=== PATIENT | male | born 1980 | race American Indian/Alaskan Native ===

== ENCOUNTER 2020-10-18 02:35 | Inpatient (IN) | payer MEDICAID ==
[2020-10-18] MEDS ORDERED: Albuterol/Ipratropium 3.0-0.5 MG/3 ML Neb Soln NEB PRN (03:32)
[2020-10-18] MEDS ORDERED: Sodium Chloride 0.9% 10 ML Syringe FLUSH PRN (03:32)
[2020-10-18] MEDS ORDERED: Lidocaine 2% 30 ML, Alum Hydrox/Mag Hydrox/Simeth 30 ML, diphenhydrAMINE 75 MG PO PRN ×3 (04:08)
[2020-10-18] MEDS ORDERED: HYDROmorphone 2 MG Tab PO PRN (04:08)
[2020-10-18] MEDS ORDERED: Levofloxacin 250 MG Tab PO SCH (04:30)
[2020-10-18] MEDS: Ketorolac 30 MG/ML SDV IVPUSH PRN ×3 (04:48→21:05)
[2020-10-18] MEDS ORDERED: cefTRIAXone 1 GM in Sodium Chloride 0.9% 50 ML IV SCH ×2 (05:00→21:00)
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
[2020-10-18] MEDS ORDERED: DIPHENHYDRAMINE PO PRN ×6 (06:01→08:00)
[2020-10-18] MEDS ORDERED: SIMETH PO PRN ×6 (06:01→08:00)
[2020-10-18] MEDS ORDERED: ALUM HYDROX PO PRN ×6 (06:01→08:00)
[2020-10-18] MEDS ORDERED: MAG HYDROX PO PRN ×6 (06:01→08:00)
[2020-10-18] MEDS ORDERED: LIDOCAINE 2% PO PRN ×6 (06:01→08:00)
[2020-10-18] MEDS ORDERED: Non-Formulary Medication 1 Each PO SCH (09:00)
[2020-10-18] MEDS: Sulfamethoxazole/Trimethoprim 800-160 MG Tab PO SCH (09:12)
--- NOTE | 2020-10-18 09:29 | CR ---
CHEST: 2 view CLINICAL HISTORY:Pneumonia COMPARISON:None FINDINGS: There is patchy bilateral lower lobe pneumonic infiltrate. There is also right pleural effusion. Heart size and pulmonary vascularity is normal. IMPRESSION:. Bilateral lower lobe pneumonic infiltrates Moderate right pleural effusion Follow-up recommended until clear
--- NOTE | 2020-10-18 09:33 | CR ---
CHEST: Portable 10/18/2020 at 8:40 AM CLINICAL HISTORY:Postthoracentesis COMPARISON:Earlier same day FINDINGS: Patient has persistent bilateral pulmonary infiltrates. The right pleural effusion has diminished. There is no significant pneumothorax. IMPRESSION: STATUS post right thoracentesis No significant pneumothorax identified
[2020-10-18] MEDS ORDERED: FLU VACC QS2020-21(6MOS UP)/PF 60 MCG/0.5 ML SYRINGE IM ONE (10:00)
[2020-10-18] MEDS: BIKTARVY PO SCH (10:26)
[2020-10-18] MEDS ORDERED: Sodium Chloride 0.9% 10 ML Syringe FLUSH ONE (10:33)
[2020-10-18] MEDS ORDERED: Iopamidol 612 MG/ML 500 ML Multipack Bottle IV ONE (10:33)
[2020-10-18] MEDS ORDERED: Sodium Chloride 0.9% 80 ML IV SCH (10:45)
--- NOTE | 2020-10-18 10:54 | CONS ---
DATE OF SERVICE: 10/18/2020 REFERRING PHYSICIAN: CONSULTING PHYSICIAN: Briseyda Grewal PA-C REASON FOR CONSULTATION: Adriel is a consultation to Surgery from Eric Mario MD regarding right pleural effusion. HISTORY OF PRESENT ILLNESS: Adriel Barr was transferred from [facility] [place] for inpatient admission of recurrent pneumonia. Recently hospitalized 11 days at [facility] in [facility] approximately 2 weeks ago for pneumonia. He was on IV antibiotics. After discharge, he developed increasingly pleuritic pain, shortness of breath. The pain was worse when lying down, felt like he had a fever one time, but did not check it. States he has had several COVID screens and they have all been negative and has not been exposed. FAMILY HISTORY: Positive for diabetes, heart disease, kidney disease, and no recent COVID infection. REVIEW OF SYSTEMS: HEENT: Negative. NECK: Negative. HEART: Negative. ENDOCRINE: History of type 2 diabetes. CARDIAC: Denies any chest pain. LUNGS: Reports shortness of breath, history of pneumonia, asthma, emphysema, and TB. GI: Denies any abdominal pain. Appetite is good. No dysphagia, nausea, vomiting, diarrhea, or constipation. : Negative. MUSCULOSKELETAL: Chronic arthritis in joints. NEUROLOGIC: Denies any history of headache, dizziness, seizures, or peripheral neuropathy. PSYCHIATRIC: No history of depression, insomnia, or anxiety. PAST MEDICAL HISTORY: 1. Human immunodeficiency virus, chronic antiviral therapy. 2. Kaposi sarcoma. 3. Type 2 diabetes. 4. Hypertension. 5. Hyperlipidemia. 6. Ischemic heart disease. 7. Chronic arthritis. CURRENT MEDICATIONS: Sulfa DS daily, Dilaudid 1 mg every 4 hours p.r.n. pain, Mintox suspension 10 mL every 6 hours p.r.n., Tylenol Extra Strength 1000 mg every 6 hours, and Biktarvy 25 mg orally. ALLERGIES: HAS NO MEDICAL ALLERGIES. SOCIAL HISTORY: Single. EMPLOYMENT: Unemployed. PHYSICAL EXAMINATION: GENERAL: Adriel Barr is a pleasant 40-year-old male, height is 5 feet 7 inches, weight is 169 pounds. VITAL SIGNS: TPR last checked at 0250: 98.8, 110, 18. Blood pressure 103/60. HEENT: Negative. NECK: Supple. HEART: Regular rate and rhythm. LUNGS: Revealed decreased breath sounds bilaterally. ABDOMEN: Soft, nontender. EXTREMITIES: Without peripheral edema. NEUROLOGIC: Intact. PSYCHIATRIC: Mood and affect appropriate. SKIN: Without rash. ASSESSMENT: 1. Recurrent pneumonia with right-sided pleural effusion. 2. Human immunodeficiency virus positive status with chronic antiviral therapy. 3. History of Kaposi sarcoma. 4. Diabetes type 2. PLAN: 1. Have consent signed for thoracentesis on the right. 2. Schedule stat ultrasound. The patient is sitting and to thong right side of lung. 3. We will evaluate p.r.n. or in a.m. Thank you for this consultation. Briseyda Grewal PA-C /[id number]
[2020-10-18] MEDS: Acetaminophen 325 MG Tab PO PRN (14:15)
--- NOTE | 2020-10-18 15:30 | CT ---
Chest w Cont CLINICAL HISTORY: Recurrent pneumonia with effusion COMPARISON: Portable chest earlier same day TECHNIQUE: Thin section axial contiguous tomographic sections were taken through the chest after bolus IV iodinated contrast administration. Coronal and sagittal images were reconstructed. Auto dosage reduction and iterative reconstruction techniques employed. FINDINGS: There are a few scattered bullae in the right apex. There is some minimal patchy density in the posterior medial right upper lobe. Moderate patchy infiltrates and areas of consolidation in the right middle lobe and both lower lobes. There is some moderate right pleural effusion. There is a small left effusion. There is moderate bilateral axillary lymphadenopathy. There are some paratracheal lymph nodes bilaterally. There are also pericarinal and bilateral hilar lymph nodes. Scans into the upper abdomen show diffuse periportal edema. IMPRESSION: Moderate patchy bilateral pulmonary infiltrates in the lower lobes and right middle lobe with large areas of consolidation Bilateral pleural effusions right greater than left Moderate bilateral axillary lymphadenopathy with some peritracheal and pericarinal lymphadenopathy. There is soft tissue fullness in both rubin some which appears to be due to small lymph nodes. Moderate diffuse periportal edema throughout the liver of unknown etiology. This can be seen with congestive heart failure or fluid overload. There are no other signs of hepatitis or ilana hepatis mass.
[2020-10-18] MEDS: Meropenem 1 GM in Sodium Chloride 0.9% 100 ML IV SCH (16:01)
--- NOTE | 2020-10-18 17:39 | OR ---
DATE OF PROCEDURE: 10/18/2020 SURGEON: Agustín Tovar MD PREOPERATIVE DIAGNOSIS: Recurrent right pleural effusion. POSTOPERATIVE DIAGNOSIS: Recurrent right pleural effusion. OPERATIVE PROCEDURE: Ultrasound-guided right thoracentesis. ANESTHESIA: Local. INDICATION FOR PROCEDURE: This is a 40-year-old admitted from [facility] last night. He has had been treated over the last several weeks for a pneumonia in [facility] and was recently discharged from [facility]. He presents now with recurrent symptoms and among other things a recurrent right pleural effusion. He has had two thoracentesis done in [facility] recently. Plan is to proceed with a right thoracentesis. Potential risks including bleeding, infection, pneumothorax and such were reviewed, possibly needing a chest tube either because of problems such as being a pneumothorax or if an empyema is identified were all reviewed, and the patient wishes to proceed. DETAILS OF PROCEDURE: The patient was placed in a sitting position in his hospital bed. The right posterolateral chest wall was then interrogated with ultrasound and the location for the thoracentesis marked, that area was then prepped and draped. Thoracentesis catheter placed after some local anesthetic was injected and 1500 mL of thinly blood-tinged pleural fluid was evacuated. As much fluid as possible was removed and the catheter then withdrawn. A chest x-ray is pending. The fluid in this case would be sent for a full microbiologic workup as well as some cytology, and we will obtain the chest x-ray now and then follow up in the morning. Agustín Tovar MD /[id number]
[2020-10-18] MEDS: Lactobacillus Rhamnosus GG (Probiotic) Cap PO SCH (21:09)
[2020-10-18] MEDS: oxyCODONE 5 MG Tab PO PRN (21:18)
[2020-10-19] MEDS: Meropenem 1 GM in Sodium Chloride 0.9% 100 ML IV SCH ×4 (00:06→23:41)
[2020-10-19] MEDS: Levofloxacin 250 MG Tab PO SCH (07:48)
[2020-10-19] MEDS: Lactobacillus Rhamnosus GG (Probiotic) Cap PO SCH ×2 (08:07→22:37)
[2020-10-19] MEDS: Sulfamethoxazole/Trimethoprim 800-160 MG Tab PO SCH (08:07)
[2020-10-19] MEDS: BIKTARVY PO SCH (08:10)
--- NOTE | 2020-10-19 08:33 | PN ---
DATE OF SERVICE: 10/19/2020 SUBJECTIVE: Adriel had a thoracentesis yesterday with 1500 mL returned. He was put on oxygen 2 L during the night. His pulse oximetry was 89% on room air. He has no questions or concerns today. OBJECTIVE: GENERAL: Adriel Barr is a 40-year-old male. VITAL SIGNS: TPR is 96.8; 93; 16; blood pressure 108/63. HEENT: Negative. NECK: Supple. HEART: Regular rate and rhythm. LUNGS: Have improved. Remains to have decreased breath sounds in the bases bilaterally. EXTREMITIES: Negative. ASSESSMENT: Ultrasound-guided right thoracentesis for recurrent right pleural effusion. PLAN: 1. Remove dressing from thoracentesis. 2. We will evaluate p.r.marianne Grewal PA-C /[id number]
--- NOTE | 2020-10-19 09:20 | CR ---
CHEST: 2 view CLINICAL HISTORY:Postthoracentesis COMPARISON:10/18/2020 FINDINGS: Patient has bilateral lower lobe infiltrates. There is some reaccumulation of pleural fluid in the right hemithorax. There is a minimal left effusion. IMPRESSION: Reaccumulation of right pleural fluid with some development of a small left effusion Persistent moderate bibasal pulmonary infiltrates
[2020-10-19] MEDS: Acetaminophen 325 MG Tab PO PRN (09:56)
--- NOTE | 2020-10-19 13:07 | PCM.PN ---
- General Info Date of Service: 10/19/20 Subjective Update: No acute events overnight. He is on 2 L of oxygen at this point with a very slight desaturation last night. His chest and back pain are slightly better today but not resolved. Appetite has been good. No nausea. No fevers. Cultures were all negative so far. His pleural effusion seems to be reaccumulating based on follow-up chest x-ray today. Functional Status: Reports: Pain Controlled, Tolerating Diet - Review of Systems General: Denies: Fever Pulmonary: Reports: Pleuritic Chest Pain - Patient Data Vitals - Most Recent: Last Vital Signs Temp 37.2 C 10/19/20 11:19 Pulse 100 10/19/20 11:19 Resp 16 10/19/20 11:19 BP 103/52 L 10/19/20 11:19 Pulse Ox 95 10/19/20 11:19 Weight - Most Recent: 76.929 kg I&O - Last 24 Hours: Intake & Output 10/18/20 10/19/20 10/19/20 22:59 06:59 14:59 Intake Total 5589 817 4725 Balance 7058 496 5435 Lab Results Last 24 Hours: Laboratory Results - last 24 hr 10/18/20 10/19/20 10/19/20 Range/Units 08:20 04:00 04:00 WBC 6.6 (4.5-11.0) K/uL RBC 3.34 L (4.30-5.90) M/uL Hgb 8.9 L (12.0-15.0) g/dL Hct 28.9 L (40.0-54.0) % MCV 87 (80-98) fL MCH 27 (27-31) pg MCHC 31 L (32-36) % Plt Count 346 (150-400) K/uL Sodium 136 L (140-148) mmol/L Potassium 4.0 (3.6-5.2) mmol/L Chloride 105 (100-108) mmol/L Carbon Dioxide 25 (21-32) mmol/L Anion Gap 10.0 (5.0-14.0) mmol/L BUN 13 (7-18) mg/dL Creatinine 0.8 (0.8-1.3) mg/dL Est Cr Clr Drug Dosing 114.47 mL/min Estimated GFR (MDRD) > 60 (>60) Glucose 156 H (74-106) mg/dL Calcium 7.7 L (8.5-10.1) mg/dL Fluid Diff Comment Not Reportable Tommy Results Last 24 Hours: Microbiology 10/18/20 08:14 Gram Stain - Final Thoracentesis Fluid Body Fluid Culture - Preliminary NO GROWTH AFTER 1 DAY 10/18/20 03:45 Aerobic Blood Culture - Preliminary Blood - Venous - Lab Draw NO GROWTH AFTER 1 DAY Anaerobic Blood Culture - Preliminary NO GROWTH AFTER 1 DAY 10/18/20 03:45 Aerobic Blood Culture - Preliminary Blood - Venous NO GROWTH AFTER 1 DAY Anaerobic Blood Culture - Preliminary NO GROWTH AFTER 1 DAY 10/18/20 08:14 CAM Preparation - Final Other - Chest Med Orders - Current: Current Medications Acetaminophen (Tylenol) 650 mg PO Q4H PRN PRN Reason: Pain Last Admin: 10/19/20 09:56 Dose: 650 mg Documented by: Albuterol/Ipratropium (Duoneb 3.0-0.5 Mg/3 Ml) 3 ml NEB Q4H PRN PRN Reason: Shortness of Breath Al Hydroxide/Mg Hydroxide 30 ml/ Diphenhydramine HCl 75 mg/Lidocaine HCl 30 ml 0 ml PO QID PRN PRN Reason: MOUTH CARE Hydromorphone HCl (Dilaudid) 1 mg PO Q4H PRN PRN Reason: Pain Meropenem 1 gm/ Sodium (Chloride) 100 mls @ 200 mls/hr IV Q8H [facility] Last Admin: 10/19/20 07:50 Dose: 200 mls/hr Documented by: Ketorolac Tromethamine (Toradol) 30 mg IVPUSH Q6H PRN PRN Reason: Pain (moderate 4-6) Stop: 10/23/20 03:34 Last Admin: 10/18/20 21:05 Dose: 30 mg Documented by: Lactobacillus Rhamnosus (Culturelle) 1 cap PO BID [facility] Last Admin: 10/19/20 08:07 Dose: 1 cap Documented by: Levofloxacin (Levaquin) 750 mg PO Q24H [facility] Last Admin: 10/19/20 07:48 Dose: 750 mg Documented by: Biktarvy 50/200/25mg (Tab (Ptom)) 1 each PO DAILY [facility] Last Admin: 10/19/20 08:10 Dose: 1 each Documented by: Oxycodone HCl (Oxycodone) 5 mg PO Q4H PRN PRN Reason: Pain (moderate 4-6) Last Admin: 10/18/20 21:18 Dose: 5 mg Documented by: Sodium Chloride (Saline Flush) 10 ml FLUSH ASDIRECTED PRN PRN Reason: Keep Vein Open Trimethoprim/Sulfamethoxazole (Septra Ds) 1 tab PO DAILY [facility] Last Admin: 10/19/20 08:07 Dose: 1 tab Documented by: Discontinued Medications Lidocaine HCl 30 ml/ Al Hydroxide/Mg Hydroxide 30 ml/Diphenhydramine HCl 75 mg 0 ml PO Q4H PRN PRN Reason: MOUTH CARE Ceftriaxone Sodium 1 gm/ (Sodium Chloride) 50 mls @ 100 mls/hr IV Q24H [facility] Sodium Chloride (Normal Saline) 80 mls @ 3.5 mls/sec IV ASDIRECTED [facility] Stop: 10/18/20 10:46 Last Admin: 10/18/20 11:52 Dose: 3 mls/sec Documented by: Influenza Virus Vaccine (Pharmacy To Dose - Influenza Vaccine) 1 each IM ONETIME ONE Stop: 10/18/20 10:01 Influenza Virus Vaccine (Fluzone Quad [id number] Syringe) 60 mcg IM .ONCE ONE Stop: 10/18/20 10:01 Last Admin: 10/18/20 09:33 Dose: 60 mcg Documented by: Iopamidol (Isovue-300 (61%)) 100 ml IV ONETIME ONE Stop: 10/18/20 10:34 Last Admin: 10/18/20 11:51 Dose: 100 ml Documented by: Levofloxacin (Levaquin) 750 mg PO Q24H [facility] Last Admin: 10/18/20 04:55 Dose: 750 mg Documented by: Sodium Chloride (Saline Flush) 10 ml FLUSH ONETIME ONE Stop: 10/18/20 10:34 Last Admin: 10/18/20 11:51 Dose: 10 ml Documented by: - Exam Quality Assessment: Supplemental Oxygen General: Alert, Oriented, Cooperative, No Acute Distress Lungs: Normal Respiratory Effort, Decreased Breath Sounds (mild right lung base), Crackles (right lung base) Cardiovascular: Regular Rate, Regular Rhythm GI/Abdominal Exam: Soft, No Distention Extremities: No Pedal Edema. No: Increased Warmth Skin: Warm, Dry Psy/Mental Status: Alert, Normal Affect Sepsis Event Note - Evaluation Sepsis Screening Result: No Definite Risk - Focused Exam Vital Signs: Vital Signs Temp Pulse Resp BP Pulse Ox 10/19/20 11:19 37.2 C 100 16 103/52 L 95 10/19/20 07:43 36.0 C L 93 16 108/63 95 10/19/20 03:27 37.1 C 94 16 99/58 L 96 - Problem List Review Problem List Initiated/Reviewed/Updated: Yes - My Orders Last 24 Hours: My Active Orders 10/18/20 14:52 oxyCODONE 5 mg PO Q4H PRN 10/18/20 16:00 Meropenem [Merrem] 1 gm Sodium Chloride 0.9% [Normal Saline] 100 ml IV Q8H 10/18/20 19:31 Sequential Compression Device [OM.PC] Routine 10/18/20 21:00 Lactobacillus Rhamnosus GG [Culturelle] 1 cap PO BID 10/19/20 08:00 levoFLOXacin [Levaquin] 750 mg PO Q24H 10/20/20 05:00 Chest 2V [CR] Timed - Plan Plan:: ASSESSMENT AND PLAN - Probable community-acquired pneumonia with bilateral pleural effusions-CT scan did demonstrate moderate size consolidations bilaterally. The right effusion is accumulating after thoracentesis yesterday. Pain is better. Vitals are stable. No fevers. Cultures are all negative so far. -Expanded antibiotic coverage with levofloxacin and meropenem -Follow-up cultures -Supplement oxygen -Symptomatic management of pain -Repeat chest x-ray in the morning, he may need another thoracentesis -Consider consultation with his infectious disease folks HIV/AIDS-currently on antiretroviral therapy. -Continue home medications Metastatic Kaposi's sarcoma- -outpatient follow-up Maintenance issues - - DVT prophylaxis -mechanical - GI prophylaxis -not indicated - Nutrition -regular Disposition -I would anticipate discharge home after the hospital stay unless he requires a transfer to a higher level of care Hernan Sampson M.D.
[2020-10-19] MEDS: Ketorolac 30 MG/ML SDV IVPUSH PRN (22:36)
[2020-10-20] MEDS: Levofloxacin 250 MG Tab PO SCH (08:09)
[2020-10-20] MEDS: Sulfamethoxazole/Trimethoprim 800-160 MG Tab PO SCH (08:09)
[2020-10-20] MEDS: BIKTARVY PO SCH (08:10)
[2020-10-20] MEDS: Lactobacillus Rhamnosus GG (Probiotic) Cap PO SCH ×2 (08:10→20:04)
[2020-10-20] MEDS: Meropenem 1 GM in Sodium Chloride 0.9% 100 ML IV SCH ×2 (08:20→16:15)
--- NOTE | 2020-10-20 09:04 | CR ---
CHEST: 2 view CLINICAL HISTORY:Follow-up right effusion COMPARISON:10/19/2020 FINDINGS: There is a decrease in the right pleural effusion. There is a persistent small left effusion similar to prior study. Bilateral pneumonic infiltrates persist unchanged. IMPRESSION: Decrease in right pleural effusion. Persistent small left effusion. No significant change in bilateral pneumonic infiltrates
--- NOTE | 2020-10-20 13:24 | PCM.PN ---
- General Info Date of Service: 10/20/20 Subjective Update: No acute events overnight. No fevers. He is off supplemental oxygen this morning. His chest and back pain seem to be improving. Appetite has been good. No nausea or vomiting. Repeat chest x-ray today shows improvement in his right pleural effusion. He is feeling much better and hoping to go home soon. Functional Status: Reports: Pain Controlled, Tolerating Diet - Review of Systems General: Denies: Fever Pulmonary: Reports: Shortness of Breath, Pleuritic Chest Pain - Patient Data Vitals - Most Recent: Last Vital Signs Temp 36.9 C 10/20/20 07:29 Pulse 96 10/20/20 07:29 Resp 18 10/20/20 07:29 BP 104/60 10/20/20 07:29 Pulse Ox 90 L 10/20/20 07:29 Weight - Most Recent: 76.929 kg I&O - Last 24 Hours: Intake & Output 10/19/20 10/20/20 10/20/20 22:59 06:59 14:59 Intake Total 1300 540 Output Total 450 Balance 850 540 Tommy Results Last 24 Hours: Microbiology 10/18/20 08:14 Gram Stain - Final Thoracentesis Fluid Body Fluid Culture - Preliminary NO GROWTH AFTER 2 DAYS 10/18/20 03:45 Aerobic Blood Culture - Preliminary Blood - Venous NO GROWTH AFTER 2 DAYS Anaerobic Blood Culture - Preliminary NO GROWTH AFTER 2 DAYS 10/18/20 03:45 Aerobic Blood Culture - Preliminary Blood - Venous - Lab Draw NO GROWTH AFTER 2 DAYS Anaerobic Blood Culture - Preliminary NO GROWTH AFTER 2 DAYS Med Orders - Current: Current Medications Acetaminophen (Tylenol) 650 mg PO Q4H PRN PRN Reason: Pain Last Admin: 10/19/20 09:56 Dose: 650 mg Documented by: Albuterol/Ipratropium (Duoneb 3.0-0.5 Mg/3 Ml) 3 ml NEB Q4H PRN PRN Reason: Shortness of Breath Al Hydroxide/Mg Hydroxide 30 ml/ Diphenhydramine HCl 75 mg/Lidocaine HCl 30 ml 0 ml PO QID PRN PRN Reason: MOUTH CARE Hydromorphone HCl (Dilaudid) 1 mg PO Q4H PRN PRN Reason: Pain Meropenem 1 gm/ Sodium (Chloride) 100 mls @ 200 mls/hr IV Q8H DEE DEE Last Admin: 10/20/20 08:20 Dose: 200 mls/hr Documented by: Ketorolac Tromethamine (Toradol) 30 mg IVPUSH Q6H PRN PRN Reason: Pain (moderate 4-6) Stop: 10/23/20 03:34 Last Admin: 10/19/20 22:36 Dose: 30 mg Documented by: Lactobacillus Rhamnosus (Culturelle) 1 cap PO BID [facility] Last Admin: 10/20/20 08:10 Dose: 1 cap Documented by: Levofloxacin (Levaquin) 750 mg PO Q24H [facility] Last Admin: 10/20/20 08:09 Dose: 750 mg Documented by: Biktarvy 50/200/25mg (Tab (Ptom)) 1 each PO DAILY [facility] Last Admin: 10/20/20 08:10 Dose: 1 each Documented by: Oxycodone HCl (Oxycodone) 5 mg PO Q4H PRN PRN Reason: Pain (moderate 4-6) Last Admin: 10/18/20 21:18 Dose: 5 mg Documented by: Sodium Chloride (Saline Flush) 10 ml FLUSH ASDIRECTED PRN PRN Reason: Keep Vein Open Trimethoprim/Sulfamethoxazole (Septra Ds) 1 tab PO DAILY [facility] Last Admin: 10/20/20 08:09 Dose: 1 tab Documented by: Discontinued Medications Lidocaine HCl 30 ml/ Al Hydroxide/Mg Hydroxide 30 ml/Diphenhydramine HCl 75 mg 0 ml PO Q4H PRN PRN Reason: MOUTH CARE Ceftriaxone Sodium 1 gm/ (Sodium Chloride) 50 mls @ 100 mls/hr IV Q24H [facility] Sodium Chloride (Normal Saline) 80 mls @ 3.5 mls/sec IV ASDIRECTED [facility] Stop: 10/18/20 10:46 Last Admin: 10/18/20 11:52 Dose: 3 mls/sec Documented by: Influenza Virus Vaccine (Pharmacy To Dose - Influenza Vaccine) 1 each IM ONETIME ONE Stop: 10/18/20 10:01 Influenza Virus Vaccine (Fluzone Quad [id number] Syringe) 60 mcg IM .ONCE ONE Stop: 10/18/20 10:01 Last Admin: 10/18/20 09:33 Dose: 60 mcg Documented by: Iopamidol (Isovue-300 (61%)) 100 ml IV ONETIME ONE Stop: 10/18/20 10:34 Last Admin: 10/18/20 11:51 Dose: 100 ml Documented by: Levofloxacin (Levaquin) 750 mg PO Q24H DEE DEE Last Admin: 10/18/20 04:55 Dose: 750 mg Documented by: Sodium Chloride (Saline Flush) 10 ml FLUSH ONETIME ONE Stop: 10/18/20 10:34 Last Admin: 10/18/20 11:51 Dose: 10 ml Documented by: - Exam Quality Assessment: No: Supplemental Oxygen General: Alert, Oriented, Cooperative, No Acute Distress Lungs: Normal Respiratory Effort, Decreased Breath Sounds (mild both bases), Crackles (right lung base) Cardiovascular: Regular Rate, Regular Rhythm GI/Abdominal Exam: Soft, No Distention Extremities: No Pedal Edema Psy/Mental Status: Alert, Normal Affect Sepsis Event Note - Evaluation Sepsis Screening Result: No Definite Risk - Focused Exam Vital Signs: Vital Signs Temp Pulse Resp BP Pulse Ox 10/20/20 07:29 36.9 C 96 18 104/60 90 L 10/20/20 04:00 36.8 C 94 16 109/66 92 L - Problem List Review Problem List Initiated/Reviewed/Updated: Yes - Plan Plan:: ASSESSMENT AND PLAN - Probable community-acquired pneumonia with bilateral pleural effusions-CT scan did demonstrate moderate size consolidations bilaterally. Right pleural effusion seems quite a bit better today based on chest x-ray and this is consistent with an improvement in his examination. Pain is fairly well controlled at this time. -Expanded antibiotic coverage with levofloxacin and meropenem -Follow-up cultures -Supplement oxygen -Symptomatic management of pain -Consider consultation with his infectious disease folks HIV/AIDS-currently on antiretroviral therapy. -Continue home medications Metastatic Kaposi's sarcoma- -outpatient follow-up Maintenance issues - - DVT prophylaxis -mechanical - GI prophylaxis -not indicated - Nutrition -regular Disposition -I would anticipate discharge home in 1 to 2 days Hernan Sampson M.D.
[2020-10-21] MEDS: Meropenem 1 GM in Sodium Chloride 0.9% 100 ML IV SCH ×3 (00:09→16:41)
[2020-10-21] MEDS: Levofloxacin 250 MG Tab PO SCH (08:40)
[2020-10-21] MEDS: Lactobacillus Rhamnosus GG (Probiotic) Cap PO SCH ×2 (10:29→22:57)
[2020-10-21] MEDS: Sulfamethoxazole/Trimethoprim 800-160 MG Tab PO SCH (10:34)
[2020-10-21] MEDS: BIKTARVY PO SCH (10:36)
--- NOTE | 2020-10-21 11:32 | PCM.DCSUM1 ---
Discharge Summary - Hospital Course Brief History: 40-year-old male with history of HIV/AIDS, metastatic Kaposi's sarcoma and recent hospital stay for possible pneumonia with bilateral effusions who presented with increasing cough, shortness of breath as well as chest and right-sided back pain. He was admitted for management of presumed pneumonia as well as a large right pleural effusion. Diagnosis: Stroke: No - Discharge Data Discharge Date: 10/21/20 Discharge Disposition: Home, Self-Care 01 Condition: Good - Referral to Home Health Primary Care Physician: PCP None - Discharge Diagnosis/Problem(s) (1) Community acquired pneumonia SNOMED Code(s): 910762780 ICD Code: J18.9 - PNEUMONIA, UNSPECIFIED ORGANISM Status: Acute Current Visit: Yes Qualifiers: Laterality: unspecified laterality Qualified Code(s): J18.9 - Pneumonia, unspecified organism (2) Acute respiratory failure with hypoxia SNOMED Code(s): 29970334, 525632357 ICD Code: J96.01 - ACUTE RESPIRATORY FAILURE WITH HYPOXIA Status: Acute Current Visit: Yes (3) Pleural effusion, right SNOMED Code(s): 57014145 ICD Code: J90 - PLEURAL EFFUSION, NOT ELSEWHERE CLASSIFIED Status: Acute Current Visit: Yes (4) HIV (human immunodeficiency virus infection) SNOMED Code(s): 18530160 ICD Code: B20 - HUMAN IMMUNODEFICIENCY VIRUS [HIV] DISEASE Status: Chronic Current Visit: Yes Qualifiers: HIV symptom status: unspecified Qualified Code(s): B20 - Human immunodeficiency virus [HIV] disease - Patient Summary/Data Consults: Consultations 10/18/20 04:22 Consult to Physician [CONS] Routine Consulting Provider: Agustín Tovar Call Completed to Consulting Physician: No Reason for Consult: recurring pneumonia with right pleural effusion Special Instructions: thoracentesis with gram stain, culture, AFB, cytology Hospital Course: Basim presented to the emergency room with cough, shortness of breath and pleuritic right-sided chest and shoulder blade pain. Work-up in the emergency room revealed a large right-sided pleural effusion with concern for underlying pneumonia as well as hypoxic respiratory failure. He had recently been hospitalized for something similar to this. He was admitted to the hospital and started on broad-spectrum antibiotic therapy. The surgical team was consulted for a thoracentesis. This was completed several hours after admission. He had about 1400 mL of bloody pleural fluid removed. He did feel a fair amount better after this was done but did continue to have a fair amount of pain. Over the next couple of days we saw a slow but steady improvement in his respiratory status. We were able to wean him off his supplemental oxygen. A repeat chest x-ray the day after the thoracentesis showed that the fluid appeared to be reaccumulating but then a chest x-ray the next day showed a significant improvement in the pleural fluid. The patient has had near total resolution of his pleuritic pain. He is off supplemental oxygen. His white count is normal. He has not had any fevers. We did test the pleural fluid for bacteria as well as acid-fast bacilli and all of her cultures and testing have been negative though the final results of the tuberculosis culture are pending. I suspect this is an inflammatory exudative effusion related to his community-acquired pneumonia. He is improving with antibiotic therapy. The plan is for him to complete a total of 8 days of antibiotics. He will be discharged home today since he is doing well. He will be following up with his primary care and infectious disease folks. - Patient Instructions Diet: Regular Diet as Tolerated Activity: As Tolerated Showering/Bathing: May Shower Notify Provider of: Fever, Increased Pain Other/Special Instructions: 1. You were in the hospital for management of bilateral pneumonia with a resulting right-sided pleural effusion (fluid around your right lung). The fluid around the lung on the right side was the cause for your chest and back/shoulder pain. Your condition has been improving with therapies provided in the hospital including antibiotics as well as a thoracentesis (fluid removal). We did not determine a causative bacteria. I do recommend additional antibiotic therapy after hospital discharge. Please take levofloxacin 750 mg once daily in the morning for 5 more days. You may resume your usual activities as tolerated. 2. Continue your other usual home medications as previously prescribed. 3. Follow up with your primary care provider or infectious disease provider in 1 to 2 weeks to ensure that you continue to improve and have cleared the pneumonia. - Discharge Plan *PRESCRIPTION DRUG MONITORING PROGRAM REVIEWED*: Not Applicable *COPY OF PRESCRIPTION DRUG MONITORING REPORT IN PATIENT DANDRE: Not Applicable Prescriptions/Med Rec: Levofloxacin 750 mg PO DAILY #5 tablet Home Medications: Home Meds Acetaminophen [Tylenol Extra Strength] 1,000 mg PO Q8H PRN 10/18/20 [History] Biktarvy 25 mg PO DAILY 10/18/20 [History] HYDROmorphone [Dilaudid] 1 mg PO Q4H PRN 10/18/20 [History] Mag Hydrox/Aluminum Hyd/Simeth [Mintox Suspension] 10 ml PO Q6HR PRN 10/18/20 [History] Sulfamethoxazole/Trimethoprim [Sulfamethoxazole-Tmp Ss Tablet] 80 - 400 mg PO DAILY 10/18/20 [History] Levofloxacin 750 mg PO DAILY #5 tablet 10/21/20 [Rx] Oxygen Therapy Mode: Room Air Patient Handouts: Levofloxacin tablets, Community-Acquired Pneumonia, Adult, [id number] - Discharge Summary/Plan Comment DC Time >30 min.: No - Patient Data Vitals - Most Recent: Last Vital Signs Temp 37.1 C 10/21/20 07:38 Pulse 95 10/21/20 07:38 Resp 16 10/21/20 07:38 BP 106/64 10/21/20 07:38 Pulse Ox 94 L 10/21/20 07:38 Weight - Most Recent: 76.929 kg I&O - Last 24 hours: Intake & Output 10/20/20 10/21/20 10/21/20 22:59 06:59 14:59 Intake Total 320 100 Balance 320 100 DANIE Results - Last 24 hrs: Microbiology 10/18/20 09:12 AFB Specimen Processing Tissue - Final Thoracentesis Fluid Acid Fast Bacilli Smear - Final Acid Fast Bacilli Culture - Preliminary 10/18/20 08:14 Gram Stain - Final Thoracentesis Fluid Body Fluid Culture - Final NO GROWTH AFTER 3 DAYS 10/18/20 03:45 Aerobic Blood Culture - Preliminary Blood - Venous - Lab Draw NO GROWTH AFTER 3 DAYS Anaerobic Blood Culture - Preliminary NO GROWTH AFTER 3 DAYS 10/18/20 03:45 Aerobic Blood Culture - Preliminary Blood - Venous NO GROWTH AFTER 3 DAYS Anaerobic Blood Culture - Preliminary NO GROWTH AFTER 3 DAYS Med Orders - Current: Current Medications Acetaminophen (Tylenol) 650 mg PO Q4H PRN PRN Reason: Pain Last Admin: 10/19/20 09:56 Dose: 650 mg Documented by: Albuterol/Ipratropium (Duoneb 3.0-0.5 Mg/3 Ml) 3 ml NEB Q4H PRN PRN Reason: Shortness of Breath Al Hydroxide/Mg Hydroxide 30 ml/ Diphenhydramine HCl 75 mg/Lidocaine HCl 30 ml 0 ml PO QID PRN PRN Reason: MOUTH CARE Hydromorphone HCl (Dilaudid) 1 mg PO Q4H PRN PRN Reason: Pain Last Admin: 10/20/20 16:22 Dose: 1 mg Documented by: Meropenem 1 gm/ Sodium (Chloride) 100 mls @ 200 mls/hr IV Q8H [facility] Last Admin: 10/21/20 08:40 Dose: 200 mls/hr Documented by: Ketorolac Tromethamine (Toradol) 30 mg IVPUSH Q6H PRN PRN Reason: Pain (moderate 4-6) Stop: 10/23/20 03:34 Last Admin: 10/19/20 22:36 Dose: 30 mg Documented by: Lactobacillus Rhamnosus (Culturelle) 1 cap PO BID [facility] Last Admin: 10/21/20 10:29 Dose: 1 cap Documented by: Levofloxacin (Levaquin) 750 mg PO Q24H [facility] Last Admin: 10/21/20 08:40 Dose: 750 mg Documented by: Sho 50/200/25mg (Tab (Ptom)) 1 each PO DAILY [facility] Last Admin: 10/21/20 10:36 Dose: Not Given Documented by: Oxycodone HCl (Oxycodone) 5 mg PO Q4H PRN PRN Reason: Pain (moderate 4-6) Last Admin: 10/18/20 21:18 Dose: 5 mg Documented by: Sodium Chloride (Saline Flush) 10 ml FLUSH ASDIRECTED PRN PRN Reason: Keep Vein Open Trimethoprim/Sulfamethoxazole (Septra Ds) 1 tab PO DAILY [facility] Last Admin: 10/21/20 10:34 Dose: 1 tab Documented by: Discontinued Medications Lidocaine HCl 30 ml/ Al Hydroxide/Mg Hydroxide 30 ml/Diphenhydramine HCl 75 mg 0 ml PO Q4H PRN PRN Reason: MOUTH CARE Ceftriaxone Sodium 1 gm/ (Sodium Chloride) 50 mls @ 100 mls/hr IV Q24H [facility] Sodium Chloride (Normal Saline) 80 mls @ 3.5 mls/sec IV ASDIRECTED [facility] Stop: 10/18/20 10:46 Last Admin: 10/18/20 11:52 Dose: 3 mls/sec Documented by: Influenza Virus Vaccine (Pharmacy To Dose - Influenza Vaccine) 1 each IM ONETIME ONE Stop: 10/18/20 10:01 Influenza Virus Vaccine (Fluzone Quad [id number] Syringe) 60 mcg IM .ONCE ONE Stop: 10/18/20 10:01 Last Admin: 10/18/20 09:33 Dose: 60 mcg Documented by: Iopamidol (Isovue-300 (61%)) 100 ml IV ONETIME ONE Stop: 10/18/20 10:34 Last Admin: 10/18/20 11:51 Dose: 100 ml Documented by: Levofloxacin (Levaquin) 750 mg PO Q24H DEE DEE Last Admin: 10/18/20 04:55 Dose: 750 mg Documented by: Sodium Chloride (Saline Flush) 10 ml FLUSH ONETIME ONE Stop: 10/18/20 10:34 Last Admin: 10/18/20 11:51 Dose: 10 ml Documented by:
[2020-10-21] MEDS: oxyCODONE 5 MG Tab PO PRN (17:30)
== END 2020-10-21 21:30 | disposition home or self-care (01) | DRG 974 ==
LOC: JP.MS 02:35
PROVIDERS: ADMIT Family Medicine; ATTEND Internal Medicine
PROC: 0W993ZZ Drainage of Right Pleural Cavity, Percutaneous Approach (ICD-10-PCS; principal; 2020-10-18)
DX: J18.9 Pneumonia, unspecified organism (principal); J96.01 Acute respiratory failure with hypoxia; B20 Human immunodeficiency virus [HIV] disease; J90 Pleural effusion, not elsewhere classified; C46.9 Kaposi's sarcoma, unspecified; E11.9 Type 2 diabetes mellitus without complications; E78.5 Hyperlipidemia, unspecified; I10 Essential (primary) hypertension
CPT/HCPCS: 36415; 71045; 71045-26; 71046; 71046-26; 71260; 71260-26; 80048; 85025; 85027; 87015; 87040; 87070; 87102; 87116; 87205; 87206; 87220; 88112; 88305; 89050; 90686; A9270-GY; G0008; J1885; J2185; Q9967